=== PATIENT | male | born 1955 | race Caucasian/White ===

== ENCOUNTER 2024-10-02 19:50 | Inpatient (IN) | payer MEDICARE, OTHER ==
[~2024-10-02] VITALS: Ht 175.3 cm; Wt 82.6 kg
[2024-10-02 20:37] LABS: BASOPHILS # (AUTO) 0.1 K/UL (0.0-0.2); BASOPHILS % (AUTO) 1.2 % (0.0-2.0); EOSINOPHILS # (AUTO) 0.5 K/uL (0.0-0.7); EOSINOPHILS % (AUTO) 6.3 % (0.0-7.0); HEMATOCRIT 35.1 % (36.7-47.1); HEMOGLOBIN 11.6 g/dL (12.5-16.3); LYMPHOCYTES # (AUTO) 1.4 K/uL (0.8-4.8); LYMPHOCYTES % (AUTO) 16.2 % (20.5-51.5); MEAN CORPUSCULAR HEMOGLOBIN 28.7 uug (23.8-33.4); MEAN CORPUSCULAR HGB CONC 33 g/dL (32.5-36.3); MEAN CORPUSCULAR VOLUME 86.8 fL (73.0-96.2); MONOCYTES # (AUTO) 1.2 K/uL (0.1-1.30); MONOCYTES % (AUTO) 14.7 % (0.0-11.0); NEUTROPHILS # (AUTO) 5.2 K/uL (1.8-8.9); NEUTROPHILS % (AUTO) 61.6 % (38.5-71.5); PLATELET COUNT (AUTO) 338 K/uL (152-348); RED BLOOD CELL COUNT(AUTO) 4.04 MIL/uL (4.06-5.63); RED CELL DISTRIBUTION WIDTH 25.1 % (12.1-16.2); WHITE BLOOD COUNT (AUTO) 8.5 K/uL (3.6-10.2)
[2024-10-02 20:38] LABS: DIFFERENTIAL COMMENT 1
[2024-10-02 20:44] LABS: CALCIUM 8.7 mg/dL (8.5-10.1); CARBON DIOXIDE 29 mmol/L (21-32); CHLORIDE 102 mmol/L (98-107); CREATININE 1.5 mg/dL (0.6-1.3); GLUCOSE 98 mg/dL (74-106); POTASSIUM 4.6 mmol/L (3.5-5.1); SODIUM SERUM 138 mmol/L (136-145); UREA NITROGEN, BLOOD 31 mg/dL (7-18)
[2024-10-02 20:49] LABS: ACETAMINOPHEN < 2.0 ug/mL (10-30); ALANINE AMINOTRANSFERASE 126 U/L (16-63); ALBUMIN 2.9 g/dL (3.4-5.0); ALKALINE PHOSPHATASE 202 U/L (50-136); ASPARTATE AMINOTRANSFERASE 65 U/L (15-37); BILIRUBIN,DIRECT 0.8 mg/dL (0.0-0.2); BILIRUBIN,TOTAL 1.1 mg/dL (0.2-1.0); TOTAL PROTEIN, SERUM 7.6 g/dL (6.4-8.2)
[2024-10-02 20:50] LABS: ETHANOL < 3 MG/DL (0-10)
[2024-10-02] MEDS ORDERED: QUET100T PO (21:14)
[2024-10-02] MEDS ORDERED: FOLI1TAB94 PO (21:14)
[2024-10-02] MEDS ORDERED: LORA0.5T48 PO (21:14)
[2024-10-02] MEDS ORDERED: AMLO-212 PO (21:14)
[2024-10-02] MEDS ORDERED: MULT-1045 PO (21:14)
[2024-10-02] MEDS ORDERED: ASPI81TA31 PO (21:14)
[2024-10-02] MEDS ORDERED: HALO5TAB PO (21:14)
[2024-10-02] MEDS ORDERED: LEVE500T83 PO (21:14)
[2024-10-02] MEDS ORDERED: METO50TA16 PO (21:14)
[2024-10-02] MEDS ORDERED: AMIO200T5 PO (21:14)
[2024-10-02] MEDS ORDERED: ATOR20TA PO (21:14)
[2024-10-02 21:25] LABS: THYROID STIMULATING HORMONE 124.066 mIU/mL (0.358-3.740)
[2024-10-02] MEDS ORDERED: TEMAZEPAM 7.5 MG CAPSULE PO PRN ×2 (21:45)
[2024-10-02] MEDS ORDERED: MAG HYDROX/AL HYDROX/SIMETH 30 ML LIQUID UDC PO PRN (21:45)
[2024-10-02] MEDS ORDERED: ACETAMINOPHEN 325 MG TABLET PO PRN (21:45)
[2024-10-02] MEDS: BLOOD SUGAR DIAGNOSTIC 1 EACH STRIP VI ONE (22:07)
[2024-10-02] MEDS: LORAZEPAM 1 MG TABLET PO PRN (22:12)
[2024-10-02 23:23] VITALS: BP 138/76; TEMP 97.9; O2SAT 94
[2024-10-02 23:34] LABS: *BILIRUBIN,URIN NEGATIVE (NEGATIVE); *BLOOD, URINE NEGATIVE (NEGATIVE); *CLARITY,URINE CLEAR (CLEAR); *COLOR,URINE YELLOW (YELLOW); *KETONES,URINE NEGATIVE (NEGATIVE); *PROTEIN,URINE NEGATIVE (NEGATIVE); LEUKOCYTE ESTERASE ,URINE NEGATIVE (NEGATIVE); NITRITE, URINE NEGATIVE (NEGATIVE); PH,URINE 6.5 (5.0-8.0); UGLUCOSE NEGATIVE (NEGATIVE)
[2024-10-02 23:44] LABS: *AMPHETAMINE, URINE NEGATIVE (NEGATIVE); *BARBITURATE, URINE NEGATIVE (NEGATIVE); *BENZODIAZEPINE, URINE NEGATIVE (NEGATIVE); *CANNABINOID, URINE NEGATIVE (NEGATIVE); *COCCAINE, URINE NEGATIVE (NEGATIVE); *OPIATE, URINE NEGATIVE (NEGATIVE); *PHENCYCLIDINE SCREEN,URINE NEGATIVE (NEGATIVE); FENTANYL, URINE NEGATIVE (NEGATIVE)
[2024-10-02 23:47] LABS: BACTERIA,URINE FEW /HPF (NONE SEEN); RBC,URINE NONE SEEN /HPF (0-3); WBC,URINE NONE SEEN /HPF (0-3)
[2024-10-02 23:48] LABS: SQUAMOUS EPITHELIAL CELL,UR FEW /HPF (NONE SEEN)
[2024-10-03] MEDS: LEVOTHYROXINE SODIUM 100 MCG TABLET PO SCH (06:39)
[2024-10-03] MEDS ORDERED: LEVOTHYROXINE SODIUM 100 MCG TABLET PO SCH (07:00)
[2024-10-03] MEDS: AMLODIPINE 5 MG TABLET PO SCH (09:00)
[2024-10-03] MEDS ORDERED: Medication Not On Formulary EA (Levetiracetam 1 TAB) PO SCH (09:00)
[2024-10-03] MEDS: NICOTINE 7 MG/24HR PATCH TD SCH (09:00)
[2024-10-03] MEDS: AMIODARONE HCL 200 MG TABLET PO SCH (09:00)
[2024-10-03] MEDS: METOPROLOL TARTRATE 50 MG TABLET PO SCH (09:00)
[2024-10-03] MEDS: MULTIVITAMINS,THERAPEUTIC TABLET PO SCH (09:35)
[2024-10-03] MEDS: ASPIRIN 81 MG TAB.CHEW PO SCH (09:35)
[2024-10-03] MEDS: levETIRAcetam 500 MG TABLET PO SCH (09:36)
[2024-10-03] MEDS: FOLIC ACID 1 MG TABLET PO SCH (09:37)
[2024-10-03 15:24] LABS: THYROID STIMULATING HORMONE 81.054 mIU/mL (0.358-3.740)
[2024-10-03 15:27] LABS: ALBUMIN 2.8 g/dL (3.4-5.0); BILIRUBIN,TOTAL 1.1 mg/dL (0.2-1.0); CALCIUM 8.6 mg/dL (8.5-10.1); CREATININE 1.4 mg/dL (0.6-1.3); POTASSIUM 4.3 mmol/L (3.5-5.1); TOTAL PROTEIN, SERUM 7.9 g/dL (6.4-8.2)
[2024-10-03 15:51] VITALS: BP 114/77; TEMP 98; O2SAT 94
[2024-10-03] MEDS: HALOPERIDOL 5 MG TABLET PO SCH (16:56)
[2024-10-03] MEDS: BENZTROPINE MESYLATE 0.5 MG TABLET PO SCH (16:57)
[2024-10-03 19:53] VITALS: BP 116/67; TEMP 98; O2SAT 97
[2024-10-03] MEDS: ATORVASTATIN 20 MG TABLET PO SCH (21:12)
[2024-10-03] MEDS: QUETIAPINE FUMARATE 100 MG TABLET PO SCH (21:12)
[2024-10-04 08:24] VITALS: BP 142/71; TEMP 98; O2SAT 99
[2024-10-04] MEDS ORDERED: TEMAZEPAM 15 MG CAPSULE PO PRN (14:30)
[2024-10-04] MEDS: LORAZEPAM 1 MG TABLET PO PRN (14:30)
[2024-10-04 16:50] VITALS: BP 171/46; TEMP 98.3; O2SAT 97
[2024-10-04 17:40] VITALS: BP_SYST 153; BP_DIAS 71; BP_DIAS 91
[2024-10-05] MEDS: LIOTHYRONINE SODIUM 5 MCG TABLET PO SCH (06:24)
[2024-10-05 07:50] VITALS: BP 143/68; TEMP 98; O2SAT 96
[2024-10-05 20:00] VITALS: BP 136/52; TEMP 99.6; O2SAT 95
[2024-10-06] MEDS: LEVOTHYROXINE SODIUM 75 MCG TABLET PO SCH (06:51)
[2024-10-06 07:43] VITALS: BP 129/65; TEMP 97.8; O2SAT 97
[2024-10-06 16:00] VITALS: BP 98/46; TEMP 97.2; O2SAT 97
[2024-10-06 20:12] VITALS: BP 134/70; TEMP 99; O2SAT 95
[2024-10-07 07:36] VITALS: BP 110/65; TEMP 98; O2SAT 98
[2024-10-07 16:40] VITALS: BP 116/73; TEMP 98; O2SAT 98
[2024-10-07] MEDS: HALOPERIDOL 5 MG TABLET PO SCH (17:35)
[2024-10-07 18:39] LABS: BILIRUBIN,TOTAL 1.4 mg/dL (0.2-1.0); CALCIUM 8.7 mg/dL (8.5-10.1); CREATININE 1.6 mg/dL (0.6-1.3); POTASSIUM 4.1 mmol/L (3.5-5.1)
[2024-10-07] MEDS: ERYTHROMYCIN 0.5% OPHT OINT 3.5 GM TUBE EACHEYE SCH (21:21)
[2024-10-08 08:20] VITALS: BP 87/59; TEMP 98.1; O2SAT 99
[2024-10-08 16:31] VITALS: BP 159/94; TEMP 98; O2SAT 96
[2024-10-08] MEDS: QUETIAPINE FUMARATE 25 MG TABLET PO SCH (16:40)
[2024-10-08] MEDS ORDERED: QUETIAPINE FUMARATE 100 MG TABLET PO SCH (21:00)
[2024-10-08] MEDS: QUETIAPINE FUMARATE 200 MG TABLET PO SCH (21:05)
[2024-10-09 07:56] VITALS: BP 144/84; TEMP 98.4; O2SAT 96
[2024-10-09 15:22] VITALS: BP 117/74; TEMP 98.4; O2SAT 94
[2024-10-09 20:00] VITALS: BP 120/70; TEMP 97.4; O2SAT 91
[2024-10-10 07:51] VITALS: BP 134/85; TEMP 98.2; O2SAT 92
[2024-10-10] MEDS: HALOPERIDOL 5 MG TABLET PO SCH (09:31)
[2024-10-10 16:04] VITALS: BP 125/79; TEMP 98; O2SAT 91
[2024-10-10 19:52] VITALS: BP 120/68; TEMP 98.2; O2SAT 94
[2024-10-11 08:24] VITALS: BP 108/62; TEMP 98.3; O2SAT 97
[2024-10-11 16:56] VITALS: BP 115/85; TEMP 98; O2SAT 97
[2024-10-11 20:53] VITALS: BP 123/83; TEMP 98; O2SAT 94
[2024-10-12 08:28] VITALS: BP 142/77; TEMP 98.1; O2SAT 97
[2024-10-12 16:24] VITALS: BP 130/73; TEMP 98.6; O2SAT 99
[2024-10-12 20:00] VITALS: BP 125/56; TEMP 97.9; O2SAT 94
[2024-10-13] MEDS: HALOPERIDOL LACTATE 5 MG/1 ML VIAL IM STA (08:10)
[2024-10-13] MEDS: diphenhydrAMINE 50 MG/1 ML VIAL IM STA (08:10)
[2024-10-13 08:41] VITALS: BP 135/84; TEMP 98; O2SAT 90
[2024-10-13] MEDS: ASPIRIN EC 81 MG TABLET.DR PO SCH (08:50)
[2024-10-13] MEDS: FERROUS GLUCONATE 324 MG TABLET PO SCH (09:15)
[2024-10-13 15:50] VITALS: BP 131/80; TEMP 98; O2SAT 92
[2024-10-13 21:03] VITALS: BP 125/82; TEMP 98.4; O2SAT 95
[2024-10-13] MEDS: QUETIAPINE FUMARATE 200 MG TABLET PO ONE (21:22)
[2024-10-14 08:28] VITALS: BP 130/71; TEMP 97.7; O2SAT 97
[2024-10-14 16:35] VITALS: BP 117/62; TEMP 98.1; O2SAT 100
[2024-10-14 19:39] VITALS: BP 116/70; TEMP 98.6; O2SAT 99
[2024-10-14] MEDS: QUETIAPINE FUMARATE 25 MG TABLET PO SCH (20:29)
[2024-10-14] MEDS: QUETIAPINE FUMARATE 200 MG TABLET PO SCH (20:29)
[2024-10-14] MEDS ORDERED: QUETIAPINE FUMARATE 200 MG TABLET PO SCH (21:00)
[2024-10-15 08:28] VITALS: BP 123/87; TEMP 98.3; O2SAT 98
[2024-10-15 08:28] LABS: BASOPHILS # (AUTO) 0.1 K/UL (0.0-0.2); BASOPHILS % (AUTO) 1.1 % (0.0-2.0); EOSINOPHILS # (AUTO) 0.5 K/uL (0.0-0.7); EOSINOPHILS % (AUTO) 6.1 % (0.0-7.0); HEMATOCRIT 34.5 % (36.7-47.1); HEMOGLOBIN 11.6 g/dL (12.5-16.3); LYMPHOCYTES % (AUTO) 11.9 % (20.5-51.5); MEAN CORPUSCULAR HEMOGLOBIN 29.4 uug (23.8-33.4); MEAN CORPUSCULAR HGB CONC 34 g/dL (32.5-36.3); MEAN CORPUSCULAR VOLUME 87.4 fL (73.0-96.2); MONOCYTES # (AUTO) 1.2 K/uL (0.1-1.30); MONOCYTES % (AUTO) 13.9 % (0.0-11.0); NEUTROPHILS # (AUTO) 5.7 K/uL (1.8-8.9); PLATELET COUNT (AUTO) 447 K/uL (152-348); RED BLOOD CELL COUNT(AUTO) 3.95 MIL/uL (4.06-5.63); RED CELL DISTRIBUTION WIDTH 22.9 % (12.1-16.2); WHITE BLOOD COUNT (AUTO) 8.4 K/uL (3.6-10.2)
[2024-10-15 08:32] LABS: DIFFERENTIAL COMMENT 1
[2024-10-15 08:44] LABS: ALBUMIN 2.7 g/dL (3.4-5.0); BILIRUBIN,TOTAL 0.8 mg/dL (0.2-1.0); CALCIUM 8.6 mg/dL (8.5-10.1); CREATININE 1.3 mg/dL (0.6-1.3); MAGNESIUM 2.1 mg/dL (1.8-2.4); PHOSPHOROUS 3.7 mg/dL (2.5-4.9); POTASSIUM 4.3 mmol/L (3.5-5.1); TOTAL PROTEIN, SERUM 8.1 g/dL (6.4-8.2)
[2024-10-15 16:34] VITALS: BP 140/86
== END 2024-10-15 18:15 | DRG 885 ==
LOC: ER 19:50 → GPS 21:41
PROVIDERS: ADMIT Psychiatry & Neurology Psychiatry; ATTEND Nurse Practitioner Family
DX: F20.0 Paranoid schizophrenia (principal); N18.9 Chronic kidney disease, unspecified; N17.0 Acute kidney failure with tubular necrosis; E44.0 Moderate protein-calorie malnutrition; E87.1 Hypo-osmolality and hyponatremia; G25.9 Extrapyramidal and movement disorder, unspecified; G93.40 Encephalopathy, unspecified; E03.9 Hypothyroidism, unspecified; Z79.890 Hormone replacement therapy; F17.210 Nicotine dependence, cigarettes, uncomplicated; G40.909 Epilepsy, unspecified, not intractable, without status epilepticus; E78.5 Hyperlipidemia, unspecified; Z86.73 Personal history of transient ischemic attack (TIA), and cerebral infarction without residual deficits; Z86.74 Personal history of sudden cardiac arrest; D52.9 Folate deficiency anemia, unspecified; E88.09 Other disorders of plasma-protein metabolism, not elsewhere classified; M89.8X9 Other specified disorders of bone, unspecified site; K21.9 Gastro-esophageal reflux disease without esophagitis; I25.119 Atherosclerotic heart disease of native coronary artery with unspecified angina pectoris; F32.9 Major depressive disorder, single episode, unspecified; J43.9 Emphysema, unspecified; I12.9 Hypertensive chronic kidney disease with stage 1 through stage 4 chronic kidney disease, or unspecified chronic kidney disease; E11.22 Type 2 diabetes mellitus with diabetic chronic kidney disease; R27.9 Unspecified lack of coordination; N40.0 Benign prostatic hyperplasia without lower urinary tract symptoms; Z79.82 Long term (current) use of aspirin; Z79.899 Other long term (current) drug therapy
CPT/HCPCS: 36415; 83550; 83735; 84100; 84443; 84481; 85025; 87086; A9150; G0480; J1200; J1630